=== PATIENT | female | born 1990 | race Caucasian/White ===

== ENCOUNTER 2018-03-15 12:47 | Emergency (ER) | payer SELFPAY ==
[2018-03-15 13:48] VITALS: BP 117/49
[2018-03-15] MEDS ORDERED: Fluorescein Sod TOPICAL 0.6* 0.6 MG TEST OPHTHALMIC ONE (13:54)
--- NOTE | 2018-03-15 14:01 | UC ---
Eye Complaint HPI - HPI Summary HPI Summary: holli this am with R eye red, crusting and seeming a little blurry. no pain but is irritated. denied itching to myself but triage reported itching. no injury, uri or contact use. - History of Current Complaint Chief Complaint: UCEye Stated Complaint: RIGHT EYE CONCERN Time Seen by Provider: 03/15/18 13:36 Hx Obtained From: Patient Hx Last Menstrual Period: nexplanon Timing: Constant Pain Intensity: 2 Associated Signs And Symptoms: Positive: Drainage (Purulent). Negative: Photophobia, Fever - Allergies/Home Medications Allergies/Adverse Reactions: Allergies Allergy/AdvReac Type Severity Reaction Status Date / Time Sulfa (Sulfonamide Allergy Unknown Verified 03/15/18 13:38 Antibiotics) Reaction Details Tetracyclines Allergy Unknown Verified 03/15/18 13:38 Reaction Details Home Medications: Home Medications Etonogestrel [Nexplanon] 1 applic .ROUTE ONCE 03/15/18 [History Confirmed ] Ibuprofen [Advil Liqui-Gels] 400 mg PO Q4HR PRN 03/15/18 [History Confirmed 09/27] PMH/Surg Hx/FS Hx/Imm Hx Neurological History: Migraine - Surgical History Surgical History: None - Family History Known Family History: Positive: None - Social History Occupation: Employed Full-time Lives: With Family Alcohol Use: Occasionally Substance Use Type: None Smoking Status (MU): Light Every Day Tobacco Smoker Type: Cigarettes Amount Used/How Often: 4-5 cig/day Have You Smoked in the Last Year: Yes Household Exposure Type: Cigarettes - Immunization History Vaccination Up to Date: Yes Review of Systems Constitutional: Negative Skin: Negative Eyes: Blurred Vision - OD, Drainage - OD, Eye Redness - OD ENT: Negative Respiratory: Negative Cardiovascular: Negative Gastrointestinal: Negative Genitourinary: Negative Motor: Negative Neurovascular: Negative Musculoskeletal: Negative Neurological: Negative Psychological: Negative Is Patient Immunocompromised?: No All Other Systems Reviewed And Are Negative: Yes Physical Exam Triage Information Reviewed: Yes Appearance: Well-Appearing Vital Signs: Initial Vital Signs Temp 97.5 F 03/15/18 13:41 Pulse 61 03/15/18 13:41 Resp 16 03/15/18 13:41 BP 117/49 03/15/18 13:41 Pulse Ox 100 03/15/18 13:41 Vital Signs Reviewed: Yes Eyes: Positive: Other: - Visual acuity is 20/50 OD, 20/50 OS, 20/40 OU. No periorbital edema or rash. Conjunctiva on R injected with mild crusting. No uptake with stain. Lids everted and no FB's. ENT: Positive: Pharynx normal, TMs normal, Other - No auricular adenopathy.. Negative: Nasal congestion, Nasal drainage Neck: Positive: Supple, Nontender, No Lymphadenopathy Respiratory: Positive: Lungs clear, Normal breath sounds Cardiovascular: Positive: RRR, No Murmur Abdomen Description: Positive: Nontender, No Organomegaly, Soft Bowel Sounds: Positive: Present Musculoskeletal: Positive: ROM Intact Neurological: Positive: Alert Psychological: Positive: Age Appropriate Behavior Skin Exam: Normal Skin: Negative: rashes Eye Complaint Course/Dx - Course Course Of Treatment: no debdrites, abrasions or ulcerations. - Differential Dx/Diagnosis Provider Diagnoses: Conjunctivitis OD Discharge - Sign-Out/Discharge Documenting (check all that apply): Patient Departure All imaging exams completed and their final reports reviewed: No Studies - Discharge Plan Condition: Stable Disposition: HOME Prescriptions: Polymyx/Trimethoprim OPTH* [Polytrim OPHTH*] 1 drop RIGHT EYE Q6H 7 Days #1 btl Patient Education Materials: Conjunctivitis (ED) Forms: *Work Release Referrals: MITCHELL Garland [Medical Doctor] - - Billing Disposition and Condition Condition: STABLE Disposition: Home
== END 2018-03-15 14:08 | disposition home or self-care (01) ==
LOC: UCCORT 12:47
DX: H10.9 Unspecified conjunctivitis (principal); F17.210 Nicotine dependence, cigarettes, uncomplicated; Z88.2 Allergy status to sulfonamides; Z88.1 Allergy status to other antibiotic agents
CPT/HCPCS: 99202; G0463